=== PATIENT | female | born 1965 | race Caucasian/White ===

== ENCOUNTER 2023-12-12 10:42 | Day surgery (SDC) | payer BC, OTHER ==
[2023-12-04 16:20] LABS: BILIRUBIN,URINE NEGATIVE (Neg); CLARITY,URINE SLIGHTLY CLOUDY (Clear); COLOR,URINE YELLOW (Yellow); GLUCOSE, URINE NEGATIVE (Neg); KETONES,URINE NEGATIVE (Neg); LEUKOCYTE ESTERASE ,URINE NEGATIVE (Neg); NITRITES, URINE NEGATIVE (Neg); OCCULT BLOOD,URINE TRACE-INTACT (Neg); PROTEIN,URINE NEGATIVE (Neg); UROBILINOGEN,URINE 0.2 E.U/dL (0.2-1.0)
[2023-12-04 16:26] LABS: UA COLLECTION TYPE NON-SPECIFIED
[2023-12-04 16:27] LABS: BACTERIA,URINE NONE SEEN /HPF (Neg); SQUAMOUS EPITHELIAL CELL,UR FEW /LPF (FEW)
[2023-12-04 16:28] LABS: WBC,URINE 0-4 /HPF (0-4)
[2023-12-04 16:50] LABS: BASOPHILS # (AUTO) 0.1 X10'3 (0-0.2); EOSINOPHILS # (AUTO) 0.3 X10'3 (0-0.9); EOSINOPHILS % (AUTO) 5.7 % (0-6); LYMPHOCYTES # (AUTO) 2.1 X10'3 (1.1-4.8); LYMPHOCYTES % (AUTO) 36.1 % (21-51); MEAN CORPUSCULAR HEMOGLOBIN 29.2 PG (27.0-31.0); MEAN CORPUSCULAR HGB CONC 33.8 g/dL (33.0-36.5); MEAN CORPUSCULAR VOLUME 86.5 FL (78-98); MEAN PLATELET VOLUME 8.4 FL (7.4-10.4); MONOCYTES # (AUTO) 0.4 X10'3 (0-0.9); MONOCYTES % (AUTO) 6.6 % (2-12); NEUTROPHILS # (AUTO) 2.9 X10'3 (1.8-7.7); NEUTROPHILS % (AUTO) 50.6 % (42-75); PRE OP HEMATOCRIT 36.8 % (35.0-45.0); PRE OP HEMOGLOBIN 12.4 g/dL (12.0-16.0); PRE OP PLATELET COUNT 257 X10'3 (140-440); PRE OP WHITE BLOOD COUNT 5.7 10'3 (4.8-10.8); RED BLOOD COUNT 4.26 X10'6 (4.20-5.60); RED CELL DISTRIBUTION WIDTH 14.8 % (11.5-14.5)
[2023-12-04 17:02] LABS: ALBUMIN 3.7 G/DL (3.4-5.0); ALKALINE PHOSPHATASE 92 IU/L (46-116); BLOOD UREA NITROGEN 11 MG/DL (7-18); BUN/CREATININE RATIO 14.9 (10.0-20.0); CALCIUM 8.1 MG/DL (8.5-10.1); CHLORIDE 104 MMOL/L (99-107); CREATININE 0.74 MG/DL (0.40-0.90); PRE OP ANION GAP 8 (8-16); PRE OP SODIUM 141 MMOL/L (135-145); TOTAL CARBON DIOXIDE 29.5 MMOL/L (24-32); eGFR 81 ML/MIN
[2023-12-04 17:27] LABS: PRE OP BILIRUB, TOTAL 0.7 MG/DL (0.0-1.0); PRE OP GLUCOSE 123 MG/DL (70-104); PRE OP POTASSIUM 3.8 MMOL/L (3.4-5.1); TOTAL PROTEIN 7.4 G/DL (6.4-8.2)
[2023-12-04 17:30] LABS: PRE OP ALT 38 U/L (30-65); PRE OP AST 19 U/L (10-37)
[~2023-12-12] VITALS: Ht 167.6 cm; Wt 80.0 kg
[2023-12-12] VITALS (23 sets, daily range): BP systolic 102–134; BP diastolic 57–88; PULSE 62–93; RESP 8–18; TEMP 97.5–98; O2SAT 92–100
[2023-12-12] MEDS: ceFOXitin 2GM-NS 100mL ADDvant 100 ML IV ONE (05:30)
[2023-12-12] MEDS: famotidine 20mg tablet PO ONE (05:30)
[2023-12-12] MEDS: ringers solution, lacted 1,000 ML IV SCH ×3 (05:30→16:37)
[~2023-12-12 10:42] MED LIST: GABA-530 PO; NAPR220C62 PO
[2023-12-12] MEDS ORDERED: sevoflurane 250ml liquid IH ONE (12:07)
[2023-12-12] MEDS ORDERED: enalaprilat dihydrate 2.5mg/2ml vial IV PRN (12:15)
[2023-12-12] MEDS ORDERED: proCHLORperazine 10 MG/2 ml inj IV PRN (12:15)
[2023-12-12] MEDS ORDERED: morphine 2 MG/ML inj. syringe IV PRN (12:15)
[2023-12-12] MEDS ORDERED: meperidine/PF 25mg/ml syringe IV PRN ×3 (12:15)
[2023-12-12] MEDS ORDERED: labetalol 20mg/4ml (5mg/ml) syringe IV PRN (12:15)
[2023-12-12] MEDS ORDERED: morphine 4 MG/ML inj SYRINge IV PRN (12:15)
[2023-12-12] MEDS ORDERED: ondansetron/PF 4mg/2ml inj IV PRN ×2 (12:15→14:00)
[2023-12-12] MEDS ORDERED: fentaNYL/PF 50MCG/1 ML 2ML syringe ONE (12:17)
[2023-12-12] MEDS ORDERED: midazolam 1 mg/ML 2ml injection ONE (12:18)
[2023-12-12] MEDS ORDERED: propofol inj 20 ML IV ONE (12:25)
[2023-12-12] MEDS ORDERED: LIDOcaine 2% (20mg/ml) 5ml vial ONE (12:25)
[2023-12-12] MEDS ORDERED: dexamethasone sod phosphate 4mg/ml inj. ONE (12:26)
[2023-12-12] MEDS ORDERED: ondansetron/PF 4mg/2ml inj ONE (12:27)
[2023-12-12] MEDS: vasoPRESSIN 20 units/ml inj. ONE (12:58)
[2023-12-12] MEDS: BUPIVAcaine 2.5mg/ml inj 50ml vial (contains preservative) ONE (13:01)
[2023-12-12] MEDS ORDERED: meperidine/PF 25mg/ml syringe ONE (13:32)
[2023-12-12] MEDS: clindamycin phosphate 40gm vag cream ONE (13:44)
[2023-12-12] MEDS ORDERED: diphenhydrAMINE 50 mg/ml inj IV PRN (14:00)
[2023-12-12] MEDS ORDERED: metoclopramide 5 mg/ml inj IV PRN (14:00)
[2023-12-12] MEDS ORDERED: LORazepam 2 mg/ml vial IV PRN (14:00)
[2023-12-12] MEDS ORDERED: temazepam 15mg capsule PO PRN (14:00)
[2023-12-12] MEDS ORDERED: normal saline 500ml IV soln 500 ML IV PRN (14:00)
[2023-12-12] MEDS ORDERED: magnesium hydroxide 30ml (MOM) UD suspension PO PRN (14:00)
[2023-12-12] MEDS: ketorolac trometh. 30mg/ml inj. IV PRN (16:09)
[2023-12-12] MEDS: HYDROcodone/acetaminophen 10/325mg tab PO PRN ×2 (16:48→21:52)
[2023-12-12] MEDS: docusate sod 100mg capsule PO SCH (19:50)
[2023-12-13 06:00] VITALS: BP 103/85; PULSE 58; RESP 16; TEMP 98; O2SAT 97
[2023-12-13 06:11] LABS: BASOPHILS % (AUTO) 0.2 % (0-1); EOSINOPHILS % (AUTO) 0.1 % (0-6); HEMATOCRIT 33.5 % (35.0-45.0); LYMPHOCYTES # (AUTO) 1.5 X10'3 (1.1-4.8); LYMPHOCYTES % (AUTO) 17.2 % (21-51); MEAN CORPUSCULAR HEMOGLOBIN 28.6 PG (27.0-31.0); MEAN CORPUSCULAR HGB CONC 32.9 g/dL (33.0-36.5); MEAN PLATELET VOLUME 8.7 FL (7.4-10.4); MONOCYTES # (AUTO) 0.5 X10'3 (0-0.9); MONOCYTES % (AUTO) 6.1 % (2-12); NEUTROPHILS # (AUTO) 6.5 X10'3 (1.8-7.7); NEUTROPHILS % (AUTO) 76.4 % (42-75); PLATELET COUNT 202 X10'3 (140-440); RED BLOOD COUNT 3.85 X10'6 (4.20-5.60); RED CELL DISTRIBUTION WIDTH 14.7 % (11.5-14.5); WHITE BLOOD COUNT 8.5 X10'3 (4.5-11.0)
[2023-12-13 06:24] LABS: ANION GAP 8 (8-16); BLOOD UREA NITROGEN 8 MG/DL (7-18); BUN/CREATININE RATIO 11.3 (10.0-20.0); CALCIUM 8.4 MG/DL (8.5-10.1); CHLORIDE 107 MMOL/L (99-107); CREATININE 0.71 MG/DL (0.40-0.90); GLUCOSE 127 MG/DL (70-104); POTASSIUM 3.9 MMOL/L (3.5-5.1); SODIUM 142 MMOL/L (135-145); TOTAL CARBON DIOXIDE 27.3 MMOL/L (24-32); eCRCL 83 ML/MIN; eGFR 85 ML/MIN
[2023-12-13 11:00] VITALS: BP 93/53; PULSE 76; RESP 16; TEMP 97.3; O2SAT 97
== END 2023-12-13 11:40 | disposition home or self-care (01) ==
LOC: PAS 10:42 → PAS IN 14:01 → SUR 3N 14:01 → PAS 12-13 11:40
PROVIDERS: ATTEND Family Medicine
DX: N81.89 Other female genital prolapse (principal); I45.10 Unspecified right bundle-branch block; I49.1 Atrial premature depolarization; K21.00 Gastro-esophageal reflux disease with esophagitis, without bleeding; E66.3 Overweight; Z79.899 Other long term (current) drug therapy; Z90.710 Acquired absence of both cervix and uterus; Z98.890 Other specified postprocedural states; Z68.28 Body mass index [BMI] 28.0-28.9, adult; Z88.2 Allergy status to sulfonamides
CPT/HCPCS: 36415; 57265; 71046; 80048; 80053; 81001; 82948; 85025; 86885; 86900; 86901; 87081; 93005; A6402; J0694; J1100; J1885; J2175; J2250; J2405; J2704; J3010; J3490; J7030; J7120; Z7506; Z7508; Z7512; A4338; A4615; A4618; A7000; G0378